=== PATIENT | female | born 2005 | race Two or more races ===

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

== ENCOUNTER 2023-05-28 18:22 | Emergency (ER) | payer OTHER ==
[2023-05-28 18:31] VITALS: BMI 20.5
[2023-05-28] MEDS ORDERED: ACETAMINOPHEN 500 MG TABLET (FP) PO ONE (18:49)
[2023-05-28] MEDS ORDERED: IBUPROFEN 400 MG TABLET (FP) PO ONE ×2 (18:49→19:14)
[2023-05-28] MEDS ORDERED: ACETAMINOPHEN 500 MG TABLET (FP) ONE (19:14)
[2023-05-28 20:17] VITALS: BP 103/64; PULSE 71; RESP 18; TEMP 99.9
[2023-05-28 20:49] LABS: EPI CELLS 6 /uL (0-25.1); HYALINE CASTS 1 /uL (0-3.1); URINE APPEARANCE CLOUDY; URINE BACTERIA 5516 /uL (0-1359); URINE BILIRUBIN NEGATIVE (NEGATIVE); URINE COLOR YELLOW; URINE GLUCOSE (UA) NEGATIVE (NEGATIVE); URINE KETONE 3+ (NEGATIVE); URINE LEUK ESTERASE 1+ (NEGATIVE); URINE NITRITE POSITIVE (NEGATIVE); URINE PROTEIN TRACE (NEGATIVE); URINE RBC 11 /uL (0-23.9); URINE WBC 120 /uL (0-25.8)
[2023-05-28 20:51] LABS: HCG,QUALITATIVE URINE Negative
== END 2023-05-28 20:55 | disposition home or self-care (01) ==
LOC: JERFT 18:22 → JER 18:22 → JERFT 20:55
DX: J06.9 Acute upper respiratory infection, unspecified (principal); R35.0 Frequency of micturition; R50.9 Fever, unspecified; M79.10 Myalgia, unspecified site; R51.9 Headache, unspecified; R05.9 Cough, unspecified; Z20.822 Contact with and (suspected) exposure to COVID-19
CPT/HCPCS: 0241U-QW; 81003; 84703; 87086; 87186; 99283-25

== ENCOUNTER 2023-08-04 01:58 | Emergency (ER) | payer OTHER ==
[2023-08-04 02:15] VITALS: BMI 20.5
[2023-08-04] MEDS: SODIUM CHLORIDE 0.9% 500 ML INFUS.BAG IV ONE (02:42)
[2023-08-04] MEDS: ONDANSETRON 4 MG/2 ML VIAL IVPUSH ONE (02:42)
[2023-08-04 03:01] LABS: EOS % 0.7 % (0-4.5); HEMATOCRIT 40.9 % (32.4-45.2); HEMOGLOBIN 14.1 GM/dL (10.7-15.3); LYMPH % 21.7 % (8-40); MCH 29.2 pg (25.7-33.7); MCHC 34.5 g/dl (32.0-36.0); MEAN CELL VOLUME 84.5 fl (80-96); MEAN PLT VOLUME 7.2 fl (7.5-11.1); MONO % 6.7 % (3.8-10.2); NEUT % 69.9 % (42.8-82.8); PLATELET COUNT 387 10^3/uL (134-434); RBC 4.84 M/mm3 (3.60-5.2); RDW 13.4 % (11.6-15.6); WHITE BLOOD COUNT 10.2 K/mm3 (4.0-10.0)
[2023-08-04 03:55] LABS: ALBUMIN 4.3 g/dl (3.4-5.0); BLOOD UREA NITROGEN 9.4 mg/dL (7-18); CALCIUM 9.8 mg/dL (8.5-10.1); POTASSIUM 4.2 mmol/L (3.5-5.1)
[2023-08-04 04:20] LABS: BILIRUBIN,TOTAL 0.8 mg/dL (0.2-1); CREATININE 0.7 mg/dL (0.55-1.3); TOT PROT 8.3 g/dl (6.4-8.2)
[2023-08-04 05:20] VITALS: BP 102/82; PULSE 86; RESP 18; TEMP 98.1
== END 2023-08-04 05:45 | disposition home or self-care (01) ==
LOC: JER 01:58
PROC: 3E030GC Introduction of Other Therapeutic Substance into Peripheral Vein, Open Approach (ICD-10-PCS; principal; 2023-08-04)
DX: R11.10 Vomiting, unspecified (principal); F10.90 Alcohol use, unspecified, uncomplicated
CPT/HCPCS: 36415; 80053; 84703; 85025; 93005; 93010; 99284-25